=== PATIENT | female | born 1970 ===

== ENCOUNTER 2017-07-22 07:45 | Day surgery (SDC) | payer OTHER ==
[~2017-07-22 07:45] MED LIST: CLONAZEPAM0.5 MG PO; LIBRAX PO; MIRALAX17 GM PO; MIXED TOCOTRIE1 EACH PO; PANADOL EXTRA500 MG PO; PEPCID40 MG PO; SEROQUEL25 MG PO; VIT C-ROSE HIP500 MG PO; [UNRECOGNIZED DRUG - OTHER] PO
== END 2017-07-22 16:40 | disposition home or self-care (01) ==
LOC: CIR.AMB 07:45 → EDBD 07:45 → CIR.AMB 12:30 → EDBD 12:30 → CIR.AMB 16:40
DX: K64.8 Other hemorrhoids (principal); K64.2 Third degree hemorrhoids